=== PATIENT | female | born 1965 | race Caucasian/White ===

== ENCOUNTER → 2016-08-16 | Outpatient (CLI) | payer OTHER ==
--- NOTE | 2016-08-17 11:42 | MM ---
Reason for exam: screening (asymptomatic). Last mammogram was performed 5 years and 3 months ago. History: Patient history of other cancer. Taking hormonal contraceptives for 4 years 6 months beginning at age 42. Physical Findings: A clinical breast exam by your physician is recommended on an annual basis and results should be correlated with mammographic findings. MG 3D Screening Mammo W/Cad Bilateral CC and MLO view(s) were taken. Prior study comparison: May 25, 2011, CAD bilateral diagnostic mammogram. June 02, 2009, right breast mammogram dig work up. May 18, 2009, bilateral digital screening mammogram. The breast tissue is heterogeneously dense. This may lower the sensitivity of mammography. Finding: There is a 18 mm circumscribed round mass in the upper outer quadrant, posterior middle position of the left breast. 17 mm oval, obscured lesion in the right breast middle posterior depth upper outer quadrant. ASSESSMENT: Incomplete: need additional imaging evaluation, BI-RAD 0 RECOMMENDATION: Ultrasound of both breasts. [facility] will attempt to contact patient to return for ultrasound.
== END | disposition home or self-care (01) ==
LOC: RADMAMWWP 07:16
PROVIDERS: ATTEND Midwife
DX: Z12.31 Encounter for screening mammogram for malignant neoplasm of breast (principal)
CPT/HCPCS: 77063; G0202

== ENCOUNTER → 2016-08-21 | Outpatient (CLI) | payer OTHER ==
--- NOTE | 2016-08-21 08:31 | USB ---
Reason for exam: additional evaluation requested from abnormal screening. History: Patient history of other cancer. Taking hormonal contraceptives for 4 years 6 months beginning at age 42. Physical Findings: Nurse Summary: right breast upper outer quadrant prominent nodular tissue, all movable, left breast 1 o'clock palpable, movable, tender, 1-2cm (nurse ts). US Breast Workup Limited ARVIND Right breast ultrasound demonstrates a 20 x 8 x 14mm oval, cystic lesion at 10 o'clock and a 6 x 3 x 6mm oval, hypoechoic lesion at 10 o'clock. Left breast ultrasound demonstrates a 6mm oval, cystic lesion at 12 o'clock, a 18 x 14 x 17mm cystic lesion at 2 o'clock and a 6mm oval, cystic lesion at 2 o'clock. These results were verbally communicated with the patient and result sheet given to the patient on 08/21/16. ASSESSMENT: Probably benign, BI-RAD 3 RECOMMENDATION: Ultrasound of the right breast in 6 months.
== END | disposition home or self-care (01) ==
LOC: RADUSWWP 07:06
PROVIDERS: ATTEND Obstetrics & Gynecology
DX: R92.8 Other abnormal and inconclusive findings on diagnostic imaging of breast (principal)

== ENCOUNTER → 2016-12-20 | Outpatient (CLI) | payer OTHER ==
--- NOTE | 2016-12-20 09:49 | MM ---
Reason for exam: clinical finding. Last mammogram was performed 4 months ago. History: Patient history of other cancer. Taking hormonal contraceptives for 4 years 6 months beginning at age 42. Indicated problem(s): pain in the left breast. Physical Findings: Nurse Summary: A 0.5cm nodule at in the right breast at 11 o'clock (nurse kp). MG Diagnostic Mammo LT w CAD CC and MLO view(s) were taken of the left breast. Prior study comparison: August 16, 2016, bilateral MG 3d screening mammo w/cad. May 25, 2011, CAD bilateral diagnostic mammogram. The breast tissue is heterogeneously dense. This may lower the sensitivity of mammography. There is chronic nodularity in the left breast upper outer quadrant. These results were verbally communicated with the patient and result sheet given to the patient on 12/20/16. ASSESSMENT: Incomplete: need additional imaging evaluation, BI-RAD 0 RECOMMENDATION: Ultrasound of the left breast. [facility] will attempt to contact patient to return for ultrasound.
--- NOTE | 2016-12-20 10:11 | USB ---
Reason for exam: clinical finding. History: Patient history of other cancer. Taking hormonal contraceptives for 4 years 6 months beginning at age 42. US Breast Limited BILAT Right breast ultrasound includes all four quadrants, the retroareolar region and axilla. Finding demonstrate a 4 x 3 x 4mm oval, cystic lesion at 1 o'clock, a 7 x 6 x 4mm oval, cystic lesion at 7 o'clock, a 21 x 19 x 9mm oval, cystic lesion at 10 o'clock 5.5 cm from nipple, and a 5 x 4 x 5mm oval, hypoechoic lesion at 10 o'clock. (suspect debris filled cyst). Left breast ultrasound demonstrates a 6 x 5 x 3mm oval, cystic lesion at 1 o'clock and a 15 x 11 x 15mm oval, cystic lesion at 2 o'clock. These results were verbally communicated with the patient and result sheet given to the patient on 12/20/16. ASSESSMENT: Probably benign, BI-RAD 3 RECOMMENDATION: Routine screening mammogram of both breasts in 8 months. Manage patient on a clinical basis. Pain in the left breast. Back on schedule August 2017.
== END | disposition home or self-care (01) ==
LOC: RADMAMWWP 07:42
PROVIDERS: ATTEND Obstetrics & Gynecology
DX: N64.4 Mastodynia (principal); R92.8 Other abnormal and inconclusive findings on diagnostic imaging of breast
CPT/HCPCS: 76642; G0206

== ENCOUNTER → 2024-01-01 | Outpatient (CLI) | payer OTHER ==
--- NOTE | 2024-01-02 08:09 | MM ---
Reason for Exam: Screening (asymptomatic). Last mammogram was performed 7 year(s) and 4 month(s) ago. Patient History: Menarche at age 14. First Full-Term at age 19. Hysterectomy at age 48. Other cancer. Currently using Hormonal Contraceptives, beginning at age 42 for 4 years, 6 months. Risk Values: Ramona 5 year model risk: 1.1%. NCI Lifetime model risk: 6.2%. Prior Study Comparison: 05/25/2011 Bilateral Diagnostic Mammogram, [facility]. 08/16/2016 Bilateral Screening Mammogram, [facility]. 12/20/2016 Left Diagnostic Mammogram, [facility]. Tissue Density: The breasts are heterogeneously dense, which may obscure small masses. Findings: Analyzed By CAD. There is no suspicious group of microcalcifications. Asymmetric density upper outer right breast approximately 4 cm from the nipple. Additional views are recommended. Overall Assessment: Incomplete: need additional imaging evaluation, BI-RAD 0 Management: Diagnostic Mammogram of the right breast. . Patient should continue monthly self-breast exams. A clinical breast exam by your physician is recommended on an annual basis. This exam should not preclude additional follow-up of suspicious palpable abnormalities. Note on Ramona scores and lifetime risk: 1. A Ramona score greater than 3% is considered moderate risk. If this is the case, consider specialist referral to assess eligibility for a risk reducing agent. 2. If overall lifetime risk for the development of breast cancer is 20% or higher, the patient may qualify for future screening with alternating mammogram and breast MRI. Electronically signed and approved by: Rey Ibarra M.D. Radiologis
== END | disposition home or self-care (01) ==
LOC: RADMAMWWP 16:12
PROVIDERS: ATTEND Family Medicine
DX: Z12.31 Encounter for screening mammogram for malignant neoplasm of breast (principal)
CPT/HCPCS: 77063; 77067

== ENCOUNTER → 2024-01-03 | Outpatient (CLI) | payer OTHER ==
--- NOTE | 2024-01-03 10:03 | MM ---
Reason for Exam: Additional evaluation requested from abnormal screening. Last screening mammogram was performed less than 1 month ago. Patient History: Menarche at age 14. First Full-Term at age 19. Hysterectomy at age 48. Postmenopausal. Currently using Hormonal Contraceptives, beginning at age 42 for 4 years, 6 months. Risk Values: Ramona 5 year model risk: 1.1%. NCI Lifetime model risk: 6.2%. Prior Study Comparison: 05/18/2009 Bilateral Screening Mammogram, [facility]. 08/16/2016 Bilateral Screening Mammogram, [facility]. 12/20/2016 Left Diagnostic Mammogram, [facility]. 01/01/2024 Bilateral MG 3D screening mammo w/cad, [facility]. Tissue Density: Right: The breasts are heterogeneously dense, which may obscure small masses. Findings: Analyzed By CAD. No persistent nodular asymmetric density. Overall Assessment: Negative, BI-RAD 1 Management: Screening Mammogram of both breasts in 1 year. . Results were given to the patient verbally at the time of exam. Patient should continue monthly self-breast exams. A clinical breast exam by your physician is recommended on an annual basis. This exam should not preclude additional follow-up of suspicious palpable abnormalities. Note on Ramona scores and lifetime risk: 1. A Ramona score greater than 3% is considered moderate risk. If this is the case, consider specialist referral to assess eligibility for a risk reducing agent. 2. If overall lifetime risk for the development of breast cancer is 20% or higher, the patient may qualify for future screening with alternating mammogram and breast MRI. Electronically signed and approved by: Rey Ibarra M.D. Radiologis
== END | disposition home or self-care (01) ==
LOC: RADMAMWWP 09:24
PROVIDERS: ATTEND Family Medicine
DX: R92.331 Mammographic heterogeneous density, right breast (principal); R92.8 Other abnormal and inconclusive findings on diagnostic imaging of breast; Z78.0 Asymptomatic menopausal state
CPT/HCPCS: 77061; 77065